=== PATIENT | female | born 1985 | race Caucasian/White ===

== ENCOUNTER 2018-09-13 16:01 | Emergency (ER) | payer OTHER ==
[~2018-09-13] VITALS: Ht 152.4 cm; Wt 78.5 kg
[2018-09-13 16:03] VITALS: Ht 152.4 cm; Wt 78.5 kg
[2018-09-13 17:06] VITALS: BP 121/86
== END 2018-09-13 17:06 | disposition home or self-care (01) ==
LOC: ED 16:01
DX: R11.2 Nausea with vomiting, unspecified (principal); R19.7 Diarrhea, unspecified; R10.9 Unspecified abdominal pain; R51 Headache; M79.7 Fibromyalgia
CPT/HCPCS: J1885; Q0162

== ENCOUNTER 2019-02-13 12:51 | Emergency (ER) | payer OTHER ==
[~2019-02-13] VITALS: Ht 152.4 cm; Wt 79.8 kg
[2019-02-13 13:35] VITALS: Ht 152.4 cm; Wt 79.8 kg
[2019-02-13 14:35] VITALS: BP 137/88
== END 2019-02-13 14:41 | disposition home or self-care (01) ==
LOC: ED 12:51
DX: J01.90 Acute sinusitis, unspecified (principal); R51 Headache; M79.7 Fibromyalgia; Z90.49 Acquired absence of other specified parts of digestive tract; M06.9 Rheumatoid arthritis, unspecified